=== PATIENT | female | born 1995 | race Two or more races ===

== ENCOUNTER 2017-02-04 13:37 | Emergency (ER) | payer OTHER ==
[~2017-02-04] VITALS: Ht 168.9 cm; Wt 72.6 kg
[2017-02-04 13:40] VITALS: BP 146/95
[2017-02-04] MEDS ORDERED: AZITHROMYCIN 250 MG TABLET PO ONE (14:15)
[2017-02-04] MEDS ORDERED: CEFTRIAXONE IM 250 MG VIAL. IM ONE (14:15)
--- NOTE | 2017-02-04 14:18 | PHYS DOC ---
Past Medical History Past Medical History: No Pertinent History Past Surgical History: No Surgical History Alcohol Use: Occasionally Drug Use: Marijuana Social History Narrative: last use 02/03/17 Adult General Chief Complaint Chief Complaint: SEXUALLY TRANSMITTED DISEASE HPI HPI 21-year-old female presenting to the emergency department today after a potentially having exposure to an STD. She reports having increased discharge is white foul-smelling. Her then boyfriend reported going to the doctor to be checked for an STD unfortunately she has been able to hear from him about the results of his examination and treatment. She also complains of a faint rash over her body. She denies any ulcerations or rash of the genitalia. Onset 3-4 days. Location tract. Duration intermittent. No alleviating factors present. Review of systems was negative for chest pain shortness of breath nausea vomiting. All other review of systems is negative unless otherwise noted in history of present illness. Review of Systems Review of Systems SEE ABOVE. Current Medications Current Medications Current Medications Medications (Trade) Dose Ordered Sig/Bonifacio Start Time Stop Time Status Last Admin Dose Admin Azithromycin (Zithromax) 1,000 mg 1X ONCE 02/04/17 14:15 02/04/17 14:16 DC 02/04/17 14:47 1,000 MG Ceftriaxone Sodium (Rocephin Im) 250 mg 1X ONCE 02/04/17 14:15 02/04/17 14:16 DC 02/04/17 14:47 250 MG Allergies Allergies Allergies Coded Allergies Type Severity Reaction Last Updated Verified No Known Drug Allergies 02/04/17 No Physical Exam Physical Exam Constitutional: Well developed, well nourished, no acute distress, non-toxic appearance. [] HENT: Normocephalic, atraumatic, bilateral external ears normal, oropharynx moist, no oral exudates, nose normal. [] Eyes: PERRLA, EOMI, conjunctiva normal, no discharge. [] Neck: Normal range of motion, no tenderness, supple, no stridor. [] Cardiovascular:Heart rate regular rhythm, no murmur [] Lungs & Thorax: Bilateral breath sounds clear to auscultation [] Abdomen: Bowel sounds normal, soft, no tenderness, no masses, no pulsatile masses. [] exam performed in the presence of a female nurse shows a scratch on her left inner thigh. Skin: Warm, dry, no erythema, patient points to her legs and arms and upper chest and I am unable to appreciate any rash. Back: No tenderness, no CVA tenderness. [] Extremities: No tenderness, no cyanosis, no clubbing, ROM intact, no edema. [] Neurologic: Alert and oriented X 3, normal motor function, normal sensory function, no focal deficits noted. [] Psychologic: Affect normal, judgement normal, mood normal. [] Current Patient Data Vital Signs Vital Signs Date Time Temp Pulse Resp B/P Pulse Ox O2 Delivery O2 Flow Rate FiO2 02/04/17 13:40 98.1 111 20 146/95 99 Room Air 98.1 Lab Values Laboratory Tests Test 02/04/17 13:08 POC Urine HCG, Qualitative Hcg negative (Negative) Microbiology 02/04/17 Wet Prep - Final, Complete EKG EKG [] Radiology/Procedures Radiology/Procedures [] Course & Med Decision Making Course & Med Decision Making Pertinent Labs and Imaging studies reviewed. (See chart for details) [] 21-year-old female presenting to the emergency department today after possible exposure to STD. Vital signs showed mild tachycardia otherwise unremarkable. Blind swabs obtained. Patient reported her rash however I could not appreciate any rash where she pointed. She did have a scratch on her inner thigh otherwise unremarkable. Rocephin and azithromycin given in the emergency department. Patient was subsequent discharged home to follow up with PCP over the next 2-3 days. Dragon Disclaimer Dragon Disclaimer This electronic medical record was generated, in whole or in part, using a voice recognition dictation system. Departure Departure Impression: Primary Impression: Possible exposure to STD Additional Impression: Bacterial vaginosis Disposition: 01 HOME, SELF-CARE Condition: STABLE Referrals: YURIY KEMP MD Patient Instructions: Safe Sex, Sexually Transmitted Disease, [id number] Additional Instructions: Thank you for allowing us to participate in your care today. Followup with your primary care physician in 3 days if your symptoms do not improve. If you do not have a primary care provider you can ask for a list of our primary care providers. Return to the emergency department you have any new or concerning findings. This should be evaluated by the primary care physician and any necessary consulting services for continued management within a few days after discharge. Return to emergency room if you have any new or concerning symptoms including but not limited to fever, chills, nausea, vomiting, intractable pain, any new rashes, chest pain, shortness of air, uncontrolled bleeding, difficulty breathing, and/or vision loss. Scripts Metronidazole (Flagyl)500 Mg Tablet1 Tab PO BID #14 TAB Prov:SAYDA CENTENO MD 02/04/17 Problem Qualifiers SAYDA CENTENO MD Feb 04, 2017 14:18
[2017-02-04] MEDS ORDERED: METR500T PO (15:18)
--- NOTE | 2017-02-08 14:04 | VNOTE ---
CALL BACK NOTE CALL BACK Microbiology 02/04/17 Wet Prep - Final, Complete Patient is positive for chlamydia, she was treated, I called patient spoke to her. Education provided. SHARON FRANKS APRN Feb 08, 2017 14:04
== END 2017-02-04 15:25 | disposition home or self-care (01) ==
LOC: ER 13:37
DX: N76.0 Acute vaginitis (principal); B96.89 Other specified bacterial agents as the cause of diseases classified elsewhere; F12.10 Cannabis abuse, uncomplicated; R00.0 Tachycardia, unspecified
CPT/HCPCS: 81025; 87491; 87591; 96372; 99284; J0696; Q0111; Q0144